=== PATIENT | female | born 1970 | race African-American/Black ===

== ENCOUNTER 2021-11-04 19:32 | Emergency (ER) | payer MEDICAID, SELFPAY ==
[2021-11-04 19:50] VITALS: BP 135/82; PULSE 115; RESP 16; TEMP 36.6; O2SAT 98
--- NOTE | 2021-11-04 20:02 | ED.DENTAL ---
HPI - Dental/Oral General Chief complaint: Dental/Oral Stated complaint: earache, toothache Time Seen by Provider: 11/04/21 19:59 History of Present Illness HPI Narrative: Patient is a 50-year-old female who presents ER with pain at tooth #17. Ongoing since yesterday. No swelling. Reports mild sinus congestion discomfort going to the left ear. No fevers or chills or sweats. No difficulty breathing or swallowing. Has follow-up with dentist scheduled for next week. Related Data Allergies Allergy/AdvReac Type Severity Reaction Status Date / Time No Known Allergies Allergy Verified 11/04/21 19:54 Review of Systems Constitutional: Constitutional: Denies chills and Denies fever(s) ENT: Denies dysphagia, Reports nasal congestion and Denies sore throat Comments: Dental pain Respiratory: Respiratory: Denies cough and Denies dyspnea PMFSH Past Medical History Medical History (Updated 11/04/21 @ 20:14 by Ld Barrera MD) Diabetes Surgical History Surgical History (Updated 11/04/21 @ 20:14 by Ld Barrera MD) History of myomectomy History of tonsillectomy Social History Social History (Updated 11/04/21 @ 20:14 by Ld Barrera MD) Smoking status: Never smoker Exam Narrative: GENERAL: Well-appearing, well-nourished, and in no acute distress. HEAD: Normocephalic, atraumatic. ENT: Mucous membranes moist. Partially erupted tooth #17 with pain but no overt abscess. Cerumen in right ear canal, left ear canal free of cerumen with normal TM. NECK: Supple. NEURO: Alert and oriented x3. PSYCH: Normal mood and affect. Course Vital Signs Vital signs: Vital Signs Temperature 97.8 F 11/04/21 19:50 Pulse Rate 115 H 11/04/21 19:50 Respiratory Rate 16 11/04/21 19:50 Blood Pressure 135/82 11/04/21 19:50 Pulse Oximetry 98 11/04/21 19:50 Oxygen Delivery Room Air 11/04/21 19:50 Temperature 97.8 F 11/04/21 19:50 Pulse Rate 115 H 11/04/21 19:50 Respiratory Rate 16 11/04/21 19:50 Blood Pressure 135/82 11/04/21 19:50 Pulse Oximetry 98 11/04/21 19:50 Oxygen Delivery Room Air 11/04/21 19:50 Discharge Plan Discharge Clinical Impression: Toothache Patient Disposition: Home, Self-Care Condition: Stable Instructions: Antibiotic Form, Dental Abscess (ED) Additional Instructions: It is felt you have a developing dental infection of tooth #17. Follow-up with your dentist. Take Augmentin for the infection. You been given a small supply of medication to help with pain. Return to the ER if you cannot breathe, you cannot swallow, you have severe facial swelling, you have additional concerns. Prescriptions: New hydrocodone-acetaminophen 5-325 mg tablet 1 tablet PO Q6H PRN (Reason: pain) Qty: 10 0RF amoxicillin-pot clavulanate 875-125 mg tablet 1 tablet PO Q12H Qty: 20 0RF Follow-up/Referrals: PHYSICIAN NOT ON STAFF,NONSTAFF [Primary Care Provider] -
== END 2021-11-04 20:33 | disposition home or self-care (01) ==
LOC: ANHED 20:26
PROVIDERS: Emergency Provider Emergency Medicine
DX: K08.89 Other specified disorders of teeth and supporting structures (principal); E11.9 Type 2 diabetes mellitus without complications
CPT/HCPCS: 99283

== ENCOUNTER 2022-02-28 17:15 | Emergency (ER) | payer OTHER, SELFPAY ==
--- NOTE | ~2022-02-28 | XR_ITS ---
EXAM: XR shoulder RT min 2V DATE: 02/28/2022 18:39 HISTORY: rt ant shoulder pain s/p injury today moves well . COMPARISON: None available. FINDINGS: Normal mineralization. No fracture or dislocation. No lytic or blastic lesion. Degenerativ e change at the AC joint and glenohumeral joint. Calcific rotator cuff tendinitis. No erosion or adrian osteal change. Soft tissues within normal limits. IMPRESSION: No acute osseous finding in the right shoulder. Reviewed, dictated and finalized at location K.
--- NOTE | 2022-02-28 17:50 | ED.NECK ---
HPI - Neck Pain/Injury General Chief Complaint: Neck Pain/Injury Stated Complaint: stiffness in neck Mode of arrival: ambulatory Limitations: no limitations History of Present Illness HPI Narrative: 51-year-old female presents concern for pain between the neck and shoulder, shoulder pain. Reports some neck stiffness. Reports today while she was at shocks debris fell down from the ceiling hitting her on the side of her neck, shoulder. She reports increasing pain and stiffness as the day goes on. She denies any medications or interventions the home. She denies decreased strength, sensation, range of motion. She denies weakness in any extremity. MD complaint: other (Shoulder pain) Related Data Home Medications Medication Instructions Recorded Confirmed Advair HFA 02/28/22 albuterol 02/28/22 fluconazole 150 mg tablet mg 02/28/22 metformin 02/28/22 Allergies Allergy/AdvReac Type Severity Reaction Status Date / Time No Known Allergies Allergy Verified 02/28/22 17:33 Review of Systems Review of Systems: CONSTITUTIONAL: Denies malaise, chills, sweats, or fever. CARDIOVASCULAR: Denies chest pain, palpitations, or edema. RESPIRATORY: Denies cough or dyspnea. SKIN: Denies bruising, open skin MUSCULOSKELETAL: Reports pain, muscle stiffness between the neck and the right shoulder, tenderness to the right shoulder NEUROLOGIC: Denies numbness, weakness, or headache. All systems reviewed & are unremarkable except as noted in HPI and below PMFSH Past Medical History Medical History (Updated 02/28/22 @ 18:57 by Donna Ayala NP) Diabetes Surgical History Surgical History (Updated 11/04/21 @ 20:14 by Ld Barrera MD) History of myomectomy History of tonsillectomy Social History Social History (Updated 11/04/21 @ 20:14 by Ld Barrera MD) Smoking status: Never smoker Comments At time of signature, agree with nursing past medical, surgical, social and family history. There is no relevant family history pertinent to the presenting complaint Exam Narrative: GENERAL: Well-appearing, well-nourished, and in no acute distress. HEAD: Normocephalic, atraumatic. EYES: PERRLA, sclera clear, and EOMI. No nystagmus. ENT: Mucous membranes moist. NECK: Supple. No lymphadenopathy. CHEST: No respiratory distress. Speaks in full sentences. HEART: Regular rate and rhythm. No murmur heard. Normal peripheral pulses. EXTREMITIES: Grossly Normal range of motion. No edema. Grossly Normal strength and sensation, equal strength. Tenderness noted to the right shoulder joint and trapezius area SKIN: Warm, dry, no visible rash. No lacerations, abrasions, bruising noted NEURO: Alert and oriented x3. PSYCH: Normal mood and affect Course Course Emergency Course: Patient is aware of diagnosis, understands and agrees to treatment plan. Anticipatory guidance given. Patient agrees to follow-up as directed and is aware of reasons to seek care at the emergency department. Portions of this record may have been created with voice recognition software Level of Care: Express Care Visit Vital Signs Vital signs: Vital Signs Temperature 97.7 F 02/28/22 17:51 Pulse Rate 107 H 02/28/22 17:51 Respiratory Rate 16 02/28/22 17:51 Blood Pressure 122/81 02/28/22 17:51 Pulse Oximetry 99 02/28/22 17:51 Oxygen Delivery Room Air 02/28/22 17:51 Temperature 97.7 F 02/28/22 17:51 Pulse Rate 107 H 02/28/22 17:51 Respiratory Rate 16 02/28/22 17:51 Blood Pressure 122/81 02/28/22 17:51 Pulse Oximetry 99 02/28/22 17:51 Oxygen Delivery Room Air 02/28/22 17:51 Reviewed. MDM - Neck Pain/Injury MDM Narrative Medical decision making narrative: Patients injury and pain is consistent with musculoskeletal etiology. No signs of neurological or vascular compromise on exam. Compartments and tissues are soft without signs of compartment syndrome. Pain is felt appropriate for further evaluation on
[2022-02-28 17:51] VITALS: BP 122/81; PULSE 107; RESP 16; TEMP 36.5; O2SAT 99
== END 2022-02-28 19:16 | disposition home or self-care (01) ==
PROVIDERS: Emergency Provider Nurse Practitioner
DX: M25.511 Pain in right shoulder (principal); E11.9 Type 2 diabetes mellitus without complications
CPT/HCPCS: 73030; 99213; G0463

== ENCOUNTER 2022-08-24 16:40 | Emergency (ER) | payer OTHER, SELFPAY ==
--- NOTE | 2022-08-24 16:42 | ED.URI ---
HPI - URI/Sore Throat General Chief Complaint: Upper Respiratory Infection Stated Complaint: Cough Time Seen by Provider: 08/24/22 16:42 Source: patient Mode of arrival: ambulatory Limitations: no limitations History of Present Illness HPI Narrative: Ms. Cotton is a 51 year old female patient presenting to the clinic today with complaints of a cough and chest congestion x 3 days. She reports no fever or chills. Cough is nonproductive at this time. Is having some mild shortness of breath. History of asthma. Has been using her albuterol inhaler without relief. At home COVID test was negative. MD elicited complaint: cough and other (Chest congestion) Related Data Home Medications Medication Instructions Recorded Confirmed Advair HFA 02/28/22 albuterol 02/28/22 fluconazole 150 mg tablet mg 02/28/22 metformin 02/28/22 Allergies Allergy/AdvReac Type Severity Reaction Status Date / Time No Known Allergies Allergy Verified 02/28/22 17:33 Review of Systems Review of Systems: Pertinent positives per HPI. Patient denies any fever, chills, rash, headache, visual changes, dizziness, cough, shortness of breath, chest pain, palpitations, nausea, vomiting, diarrhea, constipation, abdominal pain, or any urinary issues. [facility] Past Medical History Medical History Diabetes Surgical History Surgical History History of myomectomy History of tonsillectomy Social History Social History Smoking status: Never smoker Comments At the time of my signature, I reviewed and agree with the nursing past medical, surgical, social, and family history. There is no relevant family history pertinent to the patient complaint. Exam Narrative: General: Well-developed, well nourished, in no apparent distress Head: Normocephalic, atraumatic Eyes: Pupils equally round and reactive to light bilaterally, EOM intact, sclera and conjunctive clear, no discharge, lids normal Ears: TMs intact and clear, ear canals clear, no drainage, grossly hearing normal. Nose: Nares patent, clear discharge, no inflammation, no sinus tenderness. Mouth: Oral pharynx without lesions or masses, good dentition, MMM. Neck: Supple, trachea midline, no enlargement of anterior or posterior cervical nodes, no thyroid masses or goiter palpable. Cardio: Regular rate and rhythm, s1 and s2 normal, no murmur appreciated. Resp: Clear to auscultation bilaterally, no rhonchi, rales, wheezing or rubs Course Course Emergency Course: Portions of this record may have been created with voice recognition software. Level of Care: Express Care Visit Vital Signs Vital signs: Vital signs reviewed MDM - URI/Sore Throat MDM Narrative Medical decision making narrative: At the time of visit patient is resting comfortably on the exam table. I suspect patient has bronchitis. Will send in prescription for some prednisone and have her continue using her inhalers. Supportive measures were discussed with the patient she voiced understanding discharge instructions agrees to treatment plan. Differential Diagnosis Differential diagnosis: Likely upper respiratory infection, sinusitis, viral infection, bronchitis, influenza, pharyngitis and other (COVID) Discharge Plan Discharge Clinical Impression: Bronchitis Patient Disposition: Home, Self-Care Condition: Stable Instructions: Antibiotic Form, Acute Bronchitis (ED) Additional Instructions: Take prescription medications only as prescribed-prednisone Continue inhalers as prescribed Increase fluids and stay well hydrated Tylenol/motrin for pain/fever Flonase and OTC antihistamines as directed Vicks vapor rub to open sinuses Sinus rinses for congestion Cepacol spray, cough drops, throat lozenges, warm tea with
[2022-08-24 16:52] VITALS: BP 126/81; PULSE 107; RESP 16; TEMP 36.8; O2SAT 98
== END 2022-08-24 17:02 | disposition home or self-care (01) ==
PROVIDERS: Emergency Provider Nurse Practitioner Family; PCP Physician Assistant
DX: J40 Bronchitis, not specified as acute or chronic (principal); E11.9 Type 2 diabetes mellitus without complications
CPT/HCPCS: 99213; G0463

== ENCOUNTER 2023-02-25 18:12 | Emergency (ER) | payer OTHER, SELFPAY ==
[2023-02-25 18:35] VITALS: BP 106/69; PULSE 100; RESP 16; TEMP 37.6; O2SAT 100
--- NOTE | 2023-02-25 18:40 | ED.URI ---
HPI - URI/Sore Throat General Chief Complaint: Upper Respiratory Infection Stated Complaint: Sore Throat/Ears Time Seen by Provider: 02/25/23 18:40 Source: patient, RN notes reviewed and old records reviewed Mode of arrival: ambulatory Limitations: no limitations History of Present Illness HPI Narrative: 52-year-old female presents to the [facility] with complaints of sore throat, productive cough, and ear pain since yesterday States that she did take Benadryl yesterday that helped with her symptoms. No treatment today. Reports a negative at home COVID test. Onset (ago): day(s) (2) Related Data Home Medications Medication Instructions Recorded Confirmed dulaglutide 3 mg/0.5 mL 3 mg subcut WEEKLY 02/25/23 02/25/23 subcutaneous pen injector (Trulicity) sitagliptin phosphate 100 mg 1 mg PO DAILY 02/25/23 02/25/23 tablet (Januvia) Allergies Allergy/AdvReac Type Severity Reaction Status Date / Time No Known Allergies Allergy Verified 02/25/23 18:39 Review of Systems Review of Systems: All systems reviewed & are unremarkable except as noted in HPI and below Constitutional: Constitutional: Reports no additional constitutional complaints Eyes: Eyes: Reports no additional eye complaints ENT: Reports as per HPI, Reports otalgia and Reports sore throat Cardiovascular: Cardiovascular: Reports no additional cardiovascular complaints, Denies chest pain and Denies dyspnea Respiratory: Respiratory: Reports as per HPI, Denies chest congestion, Reports cough and Denies dyspnea Gastrointestinal: Gastrointestinal: Reports no additional gastrointestinal complaints, Denies abdominal pain, Denies nausea and Denies vomiting Musculoskeletal: Musculoskeletal: Reports no additional musculoskeletal complaints Integumentary/Breasts: Skin/Breast: Reports system reviewed and no additional complaints, except as docu Neurologic: Reports system reviewed and no additional complaints, except as documented Psychiatric: Psychiatric: Reports no additional psychiatric complaints Allergic/Immunologic: Allergic/Immunologic: Reports no additional allergic/immunologic complaints PMF Past Medical History Medical History Diabetes Surgical History Surgical History History of myomectomy History of tonsillectomy Social History Social History Smoking status: Never smoker Comments At the time of my signature, I reviewed and agree with the nursing past medical, surgical, social, and family history. There is no relevant family history pertinent to the patient complaint. Exam Const: General: cooperative, healthy appearing, comfortable, no acute distress, well developed, alert and well nourished Nutritional Appearance: well nourished Orientation/consciousness: patient oriented x3 Limitations: no limitations HENMT: Head: normal to inspection Ears: hearing grossly normal bilaterally, external ears normal, EAC's normal and TM abnormal bulging on the right and wth effusion serous bilateral Face/Nose/Sinus: Normal external nose present, Normal nares present, Normal nasal mucous membranes and turbinates present, normal facial exam and face symmetric Face and sinus: normal facial exam and face symmetric Mouth: Yes Normal oral and palatal mucosa present, Yes lip normal, Yes tongue normal and Yes moist mucous membranes Throat: posterior oropharynx normal, uvula midline and postnasal drainage Eyes: General: appearance normal, both eyes and all related structures Alignment and Position: alignment normal Periorbital: periorbital findings normal Pupils: Equal, round and reactive pupils present EOM: EOMs intact bilaterally Neck: Neck: normal visual inspection, full ROM, no lymphadenopathy and no meningeal signs Chest: Chest palpation & inspection: normal inspection of the chest
[2023-02-25 18:51] VITALS: PULSE 100; RESP 16; O2SAT 100
== END 2023-02-25 18:55 | disposition home or self-care (01) ==
PROVIDERS: Emergency Provider Nurse Practitioner; PCP Physician Assistant
DX: J32.9 Chronic sinusitis, unspecified (principal); H65.03 Acute serous otitis media, bilateral; E11.9 Type 2 diabetes mellitus without complications; Z79.899 Other long term (current) drug therapy
CPT/HCPCS: 87804; 99213; G0463

== ENCOUNTER 2023-04-20 10:59 | Emergency (ER) | payer OTHER, SELFPAY ==
[2023-04-20 11:21] VITALS: BP 135/77; PULSE 102; RESP 16; TEMP 38.1; O2SAT 99
--- NOTE | 2023-04-20 11:58 | ED.URI ---
HPI - URI/Sore Throat General Chief Complaint: Upper Respiratory Infection Stated Complaint: chills,pain in chest,cough,hard to breathe Time Seen by Provider: 04/20/23 11:58 Source: patient Mode of arrival: ambulatory Limitations: no limitations History of Present Illness HPI Narrative: 52-year-old female presents with complaint of cough, chest congestion, fatigue, low-grade fever, headache and body aches for 2 days. taking ibuprofen and Tylenol to treat symptoms. Requesting refill for albuterol and Advair inhaler. All Systems reviewed and negative except as noted above. Related Data Allergies Allergy/AdvReac Type Severity Reaction Status Date / Time No Known Allergies Allergy Verified 04/20/23 12:04 Review of Systems Review of Systems: CONSTITUTIONAL: reports fever, chills, or sweats. EYES: Denies visual changes, redness, or discharge. ENT: reports rhinorrhea, congestion. Denies sore throat, or otalgia. CARDIOVASCULAR: Denies chest pain, palpitations, or edema. RESPIRATORY: reports cough. Denies dyspnea. GASTROINTESTINAL: Denies abdominal pain, nausea, vomiting, or diarrhea. GENITOURINARY: Denies dysuria or hematuria. SKIN: Denies rash or itching. MUSCULOSKELETAL: Denies back pain, joint pain, or myalgia. NEUROLOGIC: Denies headache, numbness, or weakness. PSYCHIATRIC: Denies anxiety or depression. All other systems reviewed are negative, except as documented in HPI. [facility] Past Medical History Medical History Diabetes Surgical History Surgical History History of myomectomy History of tonsillectomy Social History Social History Smoking status: Never smoker Comments At time of signature, agree with nursing past medical, surgical, social and family history. There is no relevant family history pertinent to the presenting complaint. Exam Narrative: GENERAL: This is a well-nourished, well-developed patient, patient ill-appearing but in no acute distress. HEAD: normocephalic, atraumatic. EYES: PERRL. Sclera clear/white. Vision is grossly intact. EARS: External ears normal, auditory canals clear and without drainage, TMs normal without perforation. Hearing grossly intact. NOSE: External nose normal with no obvious nasal discharge, nares without redness, no rhinorrhea. THROAT: Mucous membranes moist, posterior pharynx clear. NECK: Neck supple, non-tender without lymphadenopathy, masses or thyromegaly. CARDIOVASCULAR: Regular rate and rhythm without murmurs, gallops, or rubs. RESPIRATORY: Clear to auscultation. Breath sounds equal bilaterally. No wheezes, rales, or rhonchi. SKIN: warm, Dry, intact with no suspicious lesions or rash, good texture and turgor. NEURO: awake, alert, and oriented to person, place and time. There were no obvious focal neurologic abnormalities. EXTREMITIES: No joint tenderness, effusion, or edema noted. Course Course Level of Care: Express Care Visit Vital Signs Vital signs: Vital Signs Temperature 38.1 C H 04/20/23 11:21 Pulse Rate 102 H 04/20/23 11:21 Respiratory Rate 16 04/20/23 11:21 Blood Pressure 135/77 04/20/23 11:21 Pulse Oximetry 99 04/20/23 11:21 Oxygen Delivery Room Air 04/20/23 11:21 Temperature 38.1 C H 04/20/23 11:21 Pulse Rate 102 H 04/20/23 11:21 Respiratory Rate 16 04/20/23 11:21 Blood Pressure 135/77 04/20/23 11:21 Pulse Oximetry 99 04/20/23 11:21 Oxygen Delivery Room Air 04/20/23 11:21 Reviewed MDM - URI/Sore Throat MDM Narrative Medical decision making narrative: Patient is aware of diagnosis, understands and agrees to treatment plan. Anticipatory guidance given. Patient agrees to follow-up as directed and is aware of reasons to seek care at the emergency department. Portions of this record may have been created with voice aaron
== END 2023-04-20 12:19 | disposition home or self-care (01) ==
PROVIDERS: Emergency Provider Nurse Practitioner Family; PCP Physician Assistant
DX: U07.1 COVID-19 (principal); Z76.0 Encounter for issue of repeat prescription; E11.9 Type 2 diabetes mellitus without complications
CPT/HCPCS: 87426; 87804; 99213; C9803; G0463

== ENCOUNTER 2023-07-01 17:26 | Emergency (ER) | payer OTHER, SELFPAY ==
[2023-07-01 17:37] VITALS: BP 121/81; PULSE 112; RESP 16; TEMP 36.8; O2SAT 100
--- NOTE | 2023-07-01 18:01 | ED.FEMALEGU ---
HPI - Female Genitourinary General Chief complaint: Urogenital-Female Stated complaint: Sinus/UTI Source: patient and RN notes reviewed Mode of arrival: ambulatory Limitations: no limitations History of Present Illness HPI Narrative: 52 y/o female presented for c/o burning with urination and frequency. Onset yesterday. Denies hematuria, nausea, vomiting, abdominal pain, flank pain, constipation, diarrhea, fevers or chills. Drinking more fluids intentionally today. Denies excessive thirst. Reports Blood glucose in 200s. Related Data Home Medications Medication Instructions Recorded Confirmed dulaglutide 3 mg/0.5 mL 3 mg subcut DIRECTED 07/01/23 07/01/23 subcutaneous pen injector (Trulicity) sitagliptin phosphate 100 mg 100 mg PO DAILY 07/01/23 07/01/23 tablet (Januvia) Allergies Allergy/AdvReac Type Severity Reaction Status Date / Time No Known Allergies Allergy Verified 07/01/23 17:31 Review of Systems Review of Systems: CONSTITUTIONAL: Denies body aches, fever, chills, or sweats. CARDIOVASCULAR: Denies chest pain, palpitations, or edema. RESPIRATORY: Denies cough or dyspnea. GASTROINTESTINAL: Denies abdominal pain, nausea, vomiting, or diarrhea. GENITOURINARY: Reports dysuria, frequency, denies urgency, hematuria, flank pain SKIN: Denies rash, itching, or wounds. MUSCULOSKELETAL: Denies back pain or myalgia. [facility] Past Medical History Medical History Diabetes Surgical History Surgical History History of myomectomy History of tonsillectomy Social History Social History Smoking status: Never smoker Comments At time of signature, I have reviewed and agree with nursing past medical, surgical, social and family history unless otherwise noted. Please see nursing chart for further information. There is no relevant family history pertinent to the presenting complaint Exam Narrative: GENERAL: Well-appearing ENT: Mucous membranes pink and moist. NECK: Normal AROM. Supple. CHEST: No respiratory distress. Clear to auscultation. HEART: Regular rate and rhythm. ABDOMEN: Soft, nontender, nondistended, normal active bowel sounds. No CVA tenderness SKIN: Warm, dry, no rash. NEURO: No focal deficits. Alert and oriented x3. Gait steady. PSYCH: Normal affect. Course Course Emergency Course: Patient is aware of diagnosis, understands and agrees to treatment plan. Anticipatory guidance given. Patient agrees to follow-up as directed and is aware of reasons to seek care at the emergency department. Portions of this record may have been created with voice recognition software Level of Care: Express Care Visit Vital Signs Vital signs: Vital Signs Temperature 98.2 F 07/01/23 17:37 Pulse Rate 112 H 07/01/23 17:37 Respiratory Rate 16 07/01/23 17:37 Blood Pressure 121/81 07/01/23 17:37 Pulse Oximetry 100 07/01/23 17:37 Oxygen Delivery Room Air 07/01/23 17:37 Temperature 98.2 F 07/01/23 17:37 Pulse Rate 112 H 07/01/23 17:37 Respiratory Rate 16 07/01/23 17:37 Blood Pressure 121/81 07/01/23 17:37 Pulse Oximetry 100 07/01/23 17:37 Oxygen Delivery Room Air 07/01/23 17:37 Reviewed MDM - Female Genitourinary MDM Narrative Medical decision making narrative: Results of urine reviewed with patient; will culture. v/u. pt will test for covid at home . Discussed physical exam findings. Advised supportive measures and signs/symptoms to go to the ER. Pt is appropriate for outpt treatment and f/u. Differential Diagnosis Differential diagnosis: Likely urinary tract infection, vaginitis and cystitis Lab Data Labs: Urine Glucose 2+ Reference Range: Negative Urine Bilirubin Negative
== END 2023-07-01 18:15 | disposition home or self-care (01) ==
PROVIDERS: Emergency Provider Nurse Practitioner Family; PCP Physician Assistant
DX: R30.0 Dysuria (principal); E11.9 Type 2 diabetes mellitus without complications
CPT/HCPCS: 81003; 87086; 99213; G0463

== ENCOUNTER 2024-06-20 14:44 | Emergency (ER) | payer OTHER, SELFPAY ==
[2024-06-20 14:59] VITALS: BP 138/81; PULSE 117; RESP 16; TEMP 36.6; O2SAT 99
--- NOTE | 2024-06-20 15:03 | ED.URI ---
HPI - URI/Sore Throat General Chief Complaint: Upper Respiratory Infection Stated Complaint: jaw pain,tooth pain, runny nose Time Seen by Provider: 06/20/24 15:04 Source: patient, RN notes reviewed and old records reviewed Mode of arrival: ambulatory Limitations: no limitations History of Present Illness HPI Narrative: Patient presents with complaints of swelling to left lower gingiva. She reports that he a wisdom tooth began erupting a couple of weeks ago. She has been diligently trying to keep the site clean and has been using [id number] medications to treat pain. She reports a couple of days ago she began to notice foul tasting and swelling drainage. She denies any fever, chills, sweats. She denies any injury or trauma. She reports that she has a dental appointment later this week, but she is concerned because of the drainage Related Data Home Medications ?Medication ?Instructions ?Recorded ?Confirmed ?Last Taken ?Type dulaglutide 3 mg/0.5 mL 3 mg subcut DIRECTED 07/01/23 07/01/23 Unknown History subcutaneous pen injector (Trulicity) sitagliptin phosphate 100 mg 100 mg PO DAILY 07/01/23 07/01/23 Unknown History tablet (Januvia) Allergies Allergy/AdvReac Type Severity Reaction Status Date / Time No Known Allergies Allergy Verified 06/20/24 14:51 Review of Systems Review of Systems: All systems reviewed & are unremarkable except as noted in HPI and below Constitutional: Constitutional: Reports no additional constitutional complaints ENT: Reports system reviewed and no additional complaints, except as documented and Reports dental pain Cardiovascular: Cardiovascular: Reports no additional cardiovascular complaints Respiratory: Respiratory: Reports no additional respiratory complaints Gastrointestinal: Gastrointestinal: Reports no additional gastrointestinal complaints [facility] Past Medical History Medical History Diabetes Surgical History Surgical History History of myomectomy History of tonsillectomy Social History Social History Smoking status: Never smoker Comments At the time of my signature, I reviewed and agree with the nursing past medical, surgical, social, and family history. There is no relevant family history pertinent to the patient complaint. Exam Const: General: cooperative, no acute distress, alert and awake Orientation/consciousness: oriented to person, oriented to place and oriented to time HENMT: Head: normal to inspection Mouth: Yes moist mucous membranes Teeth image:  1. Tooth is impacted, the surrounding gingival tissue is swollen with some purulent drainage visible. No associated facial swelling Resp: Effort & Inspection: normal respiratory effort and able to speak in complete sentences Auscultation: clear to auscultation bilaterally, no crackles, no rales, no rhonchi and no wheezes Cardio: Palpation: normal PMI Rate: regular rate Rhythm: regular rhythm Heart sounds: S1 normal heart sound present and S2 normal heart sound present Neuro: General: oriented to person, oriented to place and oriented to time Cranial nerves: Yes CN's II-XII intact bilaterally Psych: Appearance: grossly normal Thought process: Normal thought process present Insight: Good insight present (Psych) Judgement: Good judgement present (Psych) Course Course Level of Care: Express Care Visit Vital Signs Vital signs: Vital Signs Temperature 97.8 F 06/20/24 14:59 Pulse Rate 117 H 06/20/24 14:59 Respiratory Rate 16 06/20/24 14:59 Blood Pressure 138/81 06/20/24 14:59 Pulse Oximetry 99 06/20/24 14:59 Oxygen Delivery Room Air 06/20/24 14:59 Temperature 97.8 F 06/20/24 14:59 Pulse Rate 117 H 06/20/24 14:59 Respiratory Rate 16 06/20/24 14:59 Blood Pressure 138/81 06/20/24 14:59 Pulse Oximetry 99 06/20/24 14:59 Oxygen Delivery Room Air 06/20/24 14:59 Reviewed MDM - URI/Sore Throat MDM Narrative Medical decision making narrative: Patient with dental infection, has dental appointment later this week. She is nontoxic appearing, stable for discharge home with p.o. antibiotic therapy and anti-inflammatory medication. Discharge instructions reviewed with patient, as well as provided in writing per nursing staff. The instructions also include specific and strict return/GO TO THE ER as well as f/u information. All questions have been answered, and the patient deny any further questions with discharge and discharge plan. Some parts of this dictation were generated by voice recognition software and may contain typographical and/or grammatical inaccuracies. Differential Diagnosis Differential diagnosis: Likely other (dental caries, dental abscess) Medical Records Attestation: I reviewed the patient's medical records. Discharge Plan Discharge Clinical Impression: Dental infection Patient Disposition: Home, Self-Care Condition: Stable Instructions: Antibiotic Form Additional Instructions: Take medicines as prescribed. Follow with primary care provider. Emergency department for new or worse symptoms Patient Language: Bermudian Prescriptions: New clindamycin HCl 300 mg capsule 300 mg PO BID Qty: 14 0RF naproxen 500 mg tablet 500 mg PO BID PRN (Reason: pain) Qty: 30 0RF No Action fluticasone propion-salmeterol [Advair Diskus] 100-50 mcg/dose blister with device 1 inh inhalation Q12H Qty: 60 0RF albuterol sulfate 90 mcg/actuation HFA aerosol inhaler 2 puff inhalation QID PRN (Reason: shortness of breath or wheezing) Qty: 8.5 0RF Januvia 100 mg tablet 100 mg PO DAILY Trulicity 3 mg/0.5 mL pen injector 3 mg SUBCUT DIRECTED Follow-up/Referrals: PHYSICIAN NOT ON STAFF,NONSTAFF [Primary Care Provider] - Stand Alone Forms: Work/School Release IP Time of Disposition: 15:36
== END 2024-06-20 15:45 | disposition home or self-care (01) ==
PROVIDERS: Emergency Provider Nurse Practitioner Family
DX: K04.7 Periapical abscess without sinus (principal); E11.9 Type 2 diabetes mellitus without complications; Z79.84 Long term (current) use of oral hypoglycemic drugs; Z79.85 Long-term (current) use of injectable non-insulin antidiabetic drugs
CPT/HCPCS: 99213; G0463

== ENCOUNTER 2025-04-21 18:12 | Emergency (ER) | payer OTHER, MEDICAID, SELFPAY ==
--- NOTE | 2025-04-21 18:17 | ED.URI ---
HPI - URI/Sore Throat General Chief Complaint: Upper Respiratory Infection Stated Complaint: cough/congestion/fatigue Time Seen by Provider: 04/21/25 18:30 Source: patient Mode of arrival: ambulatory Limitations: no limitations History of Present Illness HPI Narrative: Zahraa is a 54-year-old female patient presenting to the clinic today with complaints of cough, congestion, fatigue, ear pain, and overall not feeling well. She reports symptoms have been going on for 5 days. She has taken [id number] cough and cold medications for her symptoms. She denies any chest pain or shortness of breath. No known fevers, chills, body aches. Related Data Home Medications ?Medication ?Instructions ?Recorded ?Confirmed ?Last Taken ?Type dulaglutide 3 mg/0.5 mL 3 mg subcut DIRECTED 07/01/23 07/01/23 Unknown History subcutaneous pen injector (Trulicity) sitagliptin phosphate 100 mg 100 mg PO DAILY 07/01/23 07/01/23 Unknown History tablet (Januvia) Allergies Allergy/AdvReac Type Severity Reaction Status Date / Time No Known Allergies Allergy Verified 04/21/25 18:16 Review of Systems Review of Systems: Pertinent positives per HPI. Patient denies any fever, chills, rash, headache, visual changes, dizziness, shortness of breath, chest pain, palpitations, nausea, vomiting, diarrhea, constipation, abdominal pain, or any urinary issues. [facility] Past Medical History Medical History Diabetes Surgical History Surgical History History of myomectomy History of tonsillectomy Social History Social History Smoking status: Never smoker Comments At the time of my signature, I reviewed and agree with the nursing past medical, surgical, social, and family history. There is no relevant family history pertinent to the patient complaint. Exam Narrative: General: Well-developed, well nourished, in no apparent distress Head: Normocephalic, atraumatic Eyes: Pupils equally round and reactive to light bilaterally, EOM intact, sclera and conjunctive clear, no discharge, lids normal Ears: TMs intact and congested, ear canals clear, no drainage, grossly hearing normal. Nose: Nares patent, clear nasal discharge, mild inflammation, no sinus tenderness. Mouth: Oral pharynx red without lesions or masses, good dentition, MMM. Postnasal drip Neck: Supple, trachea midline, no enlargement of anterior or posterior cervical nodes, no thyroid masses or goiter palpable. Cardio: Regular rate and rhythm, s1 and s2 normal, no murmur appreciated. Resp: Clear to auscultation bilaterally, no rhonchi, rales, wheezing or rubs Course Course Level of Care: Express Care Visit Vital Signs Vital signs: Vital Signs Temperature 37.3 C 04/21/25 18:20 Pulse Rate 122 H 04/21/25 18:20 Respiratory Rate 18 04/21/25 18:20 Blood Pressure 132/77 04/21/25 18:20 Pulse Oximetry 97 04/21/25 18:20 Oxygen Delivery Room Air 04/21/25 18:20 Temperature 37.3 C 04/21/25 18:20 Pulse Rate 122 H 04/21/25 18:20 Respiratory Rate 18 04/21/25 18:20 Blood Pressure 132/77 04/21/25 18:20 Pulse Oximetry 97 04/21/25 18:20 Oxygen Delivery Room Air 04/21/25 18:20 MDM MDM Narrative Medical decision making narrative: At the time of visit patient is resting comfortably on the exam table. Patient appears to be nontoxic. Complaints of cough, congestion, fatigue, ear pain, and overall not feeling well. She reports symptoms have been going on for 5 days. She has taken [id number] cough and cold medications for her symptoms. She denies any chest pain or shortness of breath. No known fevers, chills, body aches. On exam patient has bilateral TMs intact and congested, clear nasal drainage, mild anterior turbinate inflammation, oropharynx red with postnasal drip, no cervical lymphadenopathy, lung sounds are clear, heart rates tachycardic but regular rate and rhythm. COVID and influenza testing was ordered. Labs: COVID and influenza testing was performed. COVID was positive. Influenza testing was negative Plan: Patient has COVID. Does not need a work note. Supportive measures were discussed with the patient and they voiced understanding discharge instructions and agrees to treatment plan. Return precautions reviewed Differential Diagnosis Differential Diagnosis: Differential diagnostic considerations for upper respiratory infection include upper respiratory infection, croup, otitis media, sinusitis, viral infection, bronchitis, influenza, pharyngitis, strep, uvulitis. Discharge Plan Discharge Clinical Impression: COVID-19 Patient Disposition: Home Condition: Stable Instructions: Antibiotic Form, How to Recover from COVID-19 at Home (ED) Additional Instructions: COVID testing was positive in the clinic today. Influenza testing was negative. Increase fluids and stay well hydrated May take Tylenol or motrin as directed on bottle for pain/fever May use Flonase 1 spray in each nare daily May take OTC antihistamines such as Zyrtec or Claritin daily as directed on bottle May apply Vicks vapor rub to chest to open sinuses Sinus rinses for congestion Cepacol spray, cough drops, throat lozenges, warm tea with honey/lemon, gargle salt water to soothe throat BRAT diet for diarrhea Clear liquids x 24 hours then advance as tolerated for nausea/vomiting Go to the ED if you develop a worsening in your condition- high fever not controlled by Tylenol or Motrin, dehydration, weakness, lethargy, shortness of breath, or chest pain. Follow up with your PCP in 3-5 days if symptoms persist. Patient Language: Israeli Prescriptions: No Action fluticasone propion-salmeterol [Advair Diskus] 100-50 mcg/dose blister with device 1 inh inhalation Q12H Qty: 60 0RF Januvia 100 mg tablet 100 mg PO DAILY Trulicity 3 mg/0.5 mL pen injector 3 mg SUBCUT DIRECTED Follow-up/Referrals: PHYSICIAN,HEAD WAITER/WAITRESS BANQUET [Primary Care Provider, Internal Medicine] Time of Disposition: 18:32 Quality NIHSS Nursing Documentation ED NIHSS nursing documentation: reviewed/agree
[2025-04-21 18:20] VITALS: BP 132/77; PULSE 122; RESP 18; TEMP 37.3; O2SAT 97
[2025-04-21 18:41] LABS: EDCOVIDSCREEN Positive (Negative); EDINFLUASCREEN Negative (Negative); EDINFLUBSCREEN Negative (Negative)
== END 2025-04-21 18:44 | disposition home or self-care (01) ==
PROVIDERS: Emergency Provider Nurse Practitioner Family
DX: U07.1 COVID-19 (principal); E11.9 Type 2 diabetes mellitus without complications; Z79.84 Long term (current) use of oral hypoglycemic drugs; Z79.85 Long-term (current) use of injectable non-insulin antidiabetic drugs
CPT/HCPCS: 87426; 87804; 99212; G0463